=== PATIENT | female | born 1990 | race Two or more races ===

== ENCOUNTER 2021-09-05 18:51 | Emergency (ER) | payer OTHER ==
[~2021-09-05] VITALS: Ht 157.5 cm; Wt 77.1 kg
[2021-09-05 18:53] VITALS: BP 115/76
[2021-09-05] MEDS ORDERED: EMTRICITABINE-TENOFOVIR 200/300MG(TRUVADA) PO ONE (22:15)
[2021-09-05 22:46] LABS: Hepatitis B Surface Antibody Negative (Negative)
== END 2021-09-05 23:11 | disposition home or self-care (01) ==
LOC: ER 18:55
DX: S61.231A Puncture wound without foreign body of left index finger without damage to nail, initial encounter (principal); W46.1XXA Contact with contaminated hypodermic needle, initial encounter; Y93.89 Activity, other specified; Y92.89 Other specified places as the place of occurrence of the external cause; Y99.8 Other external cause status
CPT/HCPCS: 36415; 86703; 86706; 86803; 87340